=== PATIENT | female | born 1985 | race Caucasian/White ===

== ENCOUNTER 2017-03-07 13:53 | Emergency (ER) | payer BC | END 2017-03-07 15:30 | disposition home or self-care (01) | DX: G47.00 Insomnia, unspecified (principal); Z87.442 Personal history of urinary calculi; Z88.2 Allergy status to sulfonamides ==

== ENCOUNTER → 2017-03-31 | Outpatient (CLI) | payer BC ==
--- NOTE | 2017-03-31 13:10 | NUR ---
Screening 1 hr/ Client had done a evaluation that recommended IOP but when she came she said she drank whiskey and beer yesterday and feels she needs residential. Her was with her and he said he works out of town during the week and had to call her parents to take their 4 yr old daughter cause he could not trust to leave the child with her mom who continues to drink. Client was pretty queit other than saying she was in detox but left and now is willing to go back if they have a bed. I dialed the # and she asked and they said yes they do have a bed for her so that was her plan to go there and then come into residential when there is a bed available. Client completed paperwork with financial office and the [employer] [facility].
== END | disposition home or self-care (01) ==
LOC: ADTC.GI 09:30 → EDSTATUS 09:30 → ADTC.GI 09:50
DX: F10.20 Alcohol dependence, uncomplicated (principal)